=== PATIENT | male | born 1960 | race Caucasian/White ===

== ENCOUNTER → 2020-01-15 11:00 | Outpatient (BNVA) | payer SELFPAY | PROVIDERS: Visit Provider Nurse Practitioner Family | DX: Z20.828 Contact with and (suspected) exposure to other viral communicable diseases (principal) | CPT/HCPCS: 87635 ==

== ENCOUNTER 2020-10-31 11:37 | Outpatient (CLI) | payer SELFPAY ==
--- NOTE | 2020-10-31 11:47 | XRR_ITS ---
PROCEDURE INFORMATION: Exam: XR Cervical Spine Exam date and time: 10/31/2020 11:47 AM Age: 59 years old Clinical indication: Cervicalgia; Patient HX: Transient pain in neck and dwn shoulders; Additional info: M54.2 - cervicalgia, please add flexion and extension TECHNIQUE: Imaging protocol: XR of the cervical spine. Views: 6 or more views. COMPARISON: No relevant prior studies available. FINDINGS: Bones/joints: Significant foraminal stenosis on the left at C3-C4 secondary to uncovertebral joint osteophytes. Milder severity foraminal stenosis on the left at C5-C6 secondary to uncovertebral osteophytes. Minimal foraminal stenosis on the right at C5-C6 secondary to uncovertebral joint osteophytes. Diffuse facet joint arthropathy. No fractures. Unremarkable alignment. Moderate severity disc height loss at C5-C6. No vertebral subluxation with flexion or extension. Soft tissues: Unremarkable. XR/XR cervical spine min 6V [id number] IMPRESSION: No acute abnormalities. No instability identified.
== END 2020-10-31 11:38 | disposition home or self-care (01) ==
PROVIDERS: PCP Nurse Practitioner Family; Visit Provider Nurse Practitioner Family
DX: M54.2 Cervicalgia (principal)
CPT/HCPCS: 72052

== ENCOUNTER → 2023-09-13 08:44 | Outpatient (BNVA) | payer BC, SELFPAY | PROVIDERS: PCP Nurse Practitioner Family; Visit Provider Nurse Practitioner Family | DX: B02.9 Zoster without complications; R60.0 Localized edema; Z79.899 Other long term (current) drug therapy; Z13.6 Encounter for screening for cardiovascular disorders; B02.29 Other postherpetic nervous system involvement; H61.20 Impacted cerumen, unspecified ear | CPT/HCPCS: 80053; 80061; 81003; 83036; 83880; 84443; 85025; 86160; 86618; 86666; 86668; 86757; G0103 ==

== ENCOUNTER → 2024-06-23 14:57 | Outpatient (BNVA) | payer MEDICARE, SELFPAY | PROVIDERS: PCP Nurse Practitioner Family; Visit Provider Nurse Practitioner Family | DX: L85.8 Other specified epidermal thickening (principal); L57.8 Other skin changes due to chronic exposure to nonionizing radiation; D22.39 Melanocytic nevi of other parts of face; L81.4 Other melanin hyperpigmentation; D48.5 Neoplasm of uncertain behavior of skin | CPT/HCPCS: 11102; 11200; 17000; 99213 ==

== ENCOUNTER → 2025-03-11 09:32 | Outpatient (BNVA) | payer MEDICARE, SELFPAY | PROVIDERS: PCP Nurse Practitioner Family; Visit Provider Nurse Practitioner Family | DX: Z13.6 Encounter for screening for cardiovascular disorders (principal); Z12.5 Encounter for screening for malignant neoplasm of prostate; Z79.899 Other long term (current) drug therapy; R60.0 Localized edema | CPT/HCPCS: 80053; 80061; 81003; 82306; 83036; 84443; 85025; G0103 ==